=== PATIENT | male | born 1990 | race Hispanic/Latino ===

== ENCOUNTER → 2023-02-20 | Outpatient (CLI) | payer OTHER | END | disposition home or self-care (01) | LOC: EEVIPCON 13:00 → RAH 13:01 | PROVIDERS: ATTEND Family Medicine | DX: Z11.1 Encounter for screening for respiratory tuberculosis (principal); M47.815 Spondylosis without myelopathy or radiculopathy, thoracolumbar region | CPT/HCPCS: 71250 ==